=== PATIENT | male | born 1950 | race Caucasian/White ===

== ENCOUNTER 2024-09-21 21:56 | Emergency (ER) | payer OTHER, MEDICARE ==
[~2024-09-21] VITALS: Ht 172.7 cm; Wt 58.2 kg
--- NOTE | 2024-09-21 23:09 | Physician Documentation ---
History of Present Illness ~ Chief Complaint: Laceration Stated Complaint: HEAD INJURY Time Seen by MD: 23:04 HPI 74-year-old male presents to the ED complaining of a laceration on the right side of his head. However patient also has profuse swelling on the right side of his head secondary to be in hit by a 2 x 4 while working on his trailer. Denies any loss of conscious denies any light sensitivity denies any blood thinners however he said that the 2 x 4 did knock him down on the ground but he had no further injuries. Day of Onset: Sep 21, 2024 Medication Reconciliation Allergies: Coded Allergies: No Known Allergies (Unverified , 09/21/24) Review of Systems All Other Systems at this time: Reviewed and Negative ROS As stated above in the HPI, otherwise all systems are reviewed and negative. Physical Exam Vital Signs: Temperature: 96.8, Source: Temporal, Heart Rate: 73, Respiratory Rate: 15, BP: 180/97, Pulse Oximetry: 99, Weight: 58.200 Physical Exam General: Alert, no apparent distress. HEENT: PERRL, EOMI, no injection, moist mucous membranes. Large hematoma right forehead with 1 cm puncture/laceration Neck: Full range of motion. Respiratory: Lungs clear, no respiratory distress. Neurologic: Oriented x4. Psychiatric: Normal mood and affect. Skin: Normal color, warm and dry. No edema, no ecchymosis. Procedures Laceration/Wound Repair Laceration : Prep: irrigated by physician, scrubbed Wound Repaired With: Dermabond Progress Results/Orders Results/Orders Orders - SPENCER CLARKE TRACK LAYING EQUIPMENT OPERATOR Ct Head (09/21/24 23:05) Completed Orders - SPENCER CLARKE TRACK LAYING EQUIPMENT OPERATOR Ct Head (09/21/24 23:05) Vital Signs 09/21/24 22:01 Temp 96.8 Pulse 73 Resp 15 B/P (MAP) 180/97 Pulse Ox 99 Medical Decision Making Findings this patient's CT scan came back grossly unremarkable. Discussed with him at length that my initial concern was about intracranial brain bleed he verbalized understanding. Nursing staff completed the of the wound care.. Did not see any reason to apply staple or suture. Dermabond do not Dermabond seemed appropriate nursing staff cleaned and scrubbed the wound Differential Dx:Considerations: Include: Abrasion, Avulsion, Contusion, Laceration, Fracture, Hematoma, Neurovascular injury, Retained foreign body, Other Departure Disposition: 01 HOME / SELF CARE / HOMELESS Impression: Primary Impression: Laceration Condition: Stable Discharge Instructions: Laceration Care (Skin Glue) Referrals: NO PRIMARY CARE PROVIDER (PCP) Signature Scribe Signature: r Attestation: Scribed for Spencer Clarke Big Data Developer by Spencer Thomas NP . 09/22/24 00:01 SPENCER CLARKE NP Sep 21, 2024 23:09
--- NOTE | 2024-09-21 23:44 | RADIOLOGY REPORT ---
EXAM: CT CT HEAD INDICATION: smacked in the head with a 2x4 TECHNIQUE: CT of the head without intravenous contrast. Radiation Dose : 1. Head: CT Dose: CTDI volume is 49 mGy. Dose-length product is 930 mGy*cm The dose indicators for CT are the volume Computed Tomography (CT) Dose Index (CTDIvol) and the Dose Length Product (DLP), and are measured in units of mGy and mGy-cm, respectively. These indicators are not patient dose, but values generated from the CT scanner acquisition factors. The report includes radiation exposure data for exposures received during this examination. COMPARISON: None FINDINGS: There is no evidence of acute intracranial hemorrhage, extra-axial collection, mass effect, midline s hift, herniation or hydrocephalus. The ventricles, sulci and cisterns are age appropriate. The alvarez-white differentiation is intact. Patchy periventricular and subcortical white matter hypoattenuation is nonspecific but may be related to small vessel ischemic disease. The visualized paranasal sinuses and mastoid air cells are clear. Superficial hematoma is seen in the right frontal scalp. IMPRESSION: 1. No acute intracranial abnormality. 2. Superficial hematoma is seen in the right frontal scalp Radiation optimization: All CT scans at this facility use at least one of these dose optimization abiola hniques: automated exposure control mA and/or kV adjustment per patient size (includes targeted exam s where dose is matched to clinical indication) or iterative reconstruction.
[2024-09-22 00:08] VITALS: BP 130/78; PULSE 82; RESP 10; TEMP 96.8; O2SAT 96
== END 2024-09-22 00:15 | disposition home or self-care (01) ==
LOC: ER 21:57
DX: S01.91XA Laceration without foreign body of unspecified part of head, initial encounter (principal); R51.9 Headache, unspecified; X58.XXXA Exposure to other specified factors, initial encounter; Y93.89 Activity, other specified; Y92.89 Other specified places as the place of occurrence of the external cause; Y99.8 Other external cause status
CPT/HCPCS: 12011; 70450; 99284